=== PATIENT | female | born 1995 | race African-American/Black ===

== ENCOUNTER 2020-05-25 15:30 | Emergency (ER) | payer BC, SELFPAY ==
[2020-05-25 15:36] VITALS: BP 122/72; PULSE 81; RESP 16; TEMP 36.5; O2SAT 100
--- NOTE | 2020-05-25 15:57 | ED.FEMALEGU ---
HPI - Female Genitourinary General Chief complaint: TRANSACTION MANAGER Stated complaint: other Time Seen by Provider: 05/25/20 15:49 Source: patient and RN notes reviewed Mode of arrival: ambulatory Limitations: no limitations History of Present Illness HPI Narrative: Patient presents today complaining of a possibly retained tampon. Her last menstrual period was around 1 month ago. She presents today due to a vaginal odor. Denies abdominal or pelvic pain, vaginal discharge or bleeding, but complains of an odor. Denies concerns for sexually transmitted infections. Denies urinary complaints. Related Data Allergies Allergy/AdvReac Type Severity Reaction Status Date / Time No Known Allergies Allergy Verified 05/25/20 15:41 Review of Systems Review of Systems: Narrative: CONSTITUTIONAL: Denies body aches, fever, chills, or sweats. EYES: Denies visual changes, redness, or discharge. ENT: Denies rhinorrhea, congestion, sore throat, or otalgia. CARDIOVASCULAR: Denies chest pain, palpitations, or edema. RESPIRATORY: Denies cough or dyspnea. GASTROINTESTINAL: Denies abdominal pain, nausea, vomiting, or diarrhea. GENITOURINARY: Denies vaginal discharge, dysuria or hematuria.+ Vaginal odor SKIN: Denies rash, itching, or wounds. MUSCULOSKELETAL: Denies back pain, joint pain, or myalgia. NEUROLOGIC: Denies headache, numbness, tingling, or weakness. PSYCH: Denies depression or anxiety. PMFSH Comments At time of signature, I have reviewed and agree with nursing past medical, surgical, social and family history unless otherwise noted. Please see nursing chart for further information. There is no relevant family history pertinent to the presenting complaint Exam Narrative: Exam Narrative: GENERAL: Well-appearing, well-nourished, and in no acute distress. HEAD: Normocephalic, atraumatic. EYES: EOMI. No redness or drainage. ENT: Mucous membranes pink and moist. NECK: Normal AROM. CHEST: No respiratory distress. ABDOMEN: Soft, nontender, nondistended, normal active bowel sounds. : No tampon noted in vagina. -CMT. Cervix is mildly friable. Copious thick, chunky, yellow vaginal discharge. No adnexal tenderness. EXTREMITIES: Normal range of motion. No edema. SKIN: Warm, dry, no rash. Capillary refill normal. Normal skin turgor. NEURO: No focal deficits. Alert and oriented x3. Gait steady. PSYCH: Normal affect. No signs of depression or anxiety. Course Course Emergency Course: During exam, after noting patient's copious vaginal discharge, I asked her again if she was concerned about sexually transmitted infections and if she would like to be tested. Patient responded that she would like to be tested for what was available today. We will send off urine sample for gonorrhea, chlamydia, and trichomonas as facility today does not have swabs available for vaginal collection. Vital Signs Vital signs: Vital Signs Temperature 97.7 F 05/25/20 15:36 Pulse Rate 81 05/25/20 15:36 Respiratory Rate 16 05/25/20 15:36 Blood Pressure 122/72 05/25/20 15:36 Pulse Oximetry 100 05/25/20 15:36 Temperature 97.7 F 05/25/20 15:36 Pulse Rate 81 05/25/20 15:36 Respiratory Rate 16 05/25/20 15:36 Blood Pressure 122/72 05/25/20 15:36 Pulse Oximetry 100 05/25/20 15:36 Reviewed. Pt has been instructed to follow up with her PCP regarding her elevated blood pressure today. MDM - Female Genitourinary Differential Diagnosis Differential diagnosis: Likely bacterial vaginosis, trichomoniasis, cervicitis, vaginitis and other (Gonorrhea, chlamydia, retained tampon) Critical Care Time Critical Care Time Critical Care Time: No Discharge Plan Discharge Clinical Impression: Vaginal discharge Patient Disposition: Home, Self-Care Condition: Stable Instructions: Antibiotic Form Additional Instructions: No retained tampon was found today. Urine was collected today to send out for gonorrhea, chlamydia, and trichomonas. You
[2020-05-25] MEDS: AZITHROMYCIN 250 MG TABLET 1000 MG PO (16:30)
[2020-05-25] MEDS: cefTRIAXone 250 MG VIAL IM (16:31)
--- NOTE | 2020-05-25 16:35 | PC.NURSE ---
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 No retained tampon noted. Patient tolerated well.
== END 2020-05-25 16:57 | disposition home or self-care (01) ==
PROVIDERS: Emergency Provider Nurse Practitioner
DX: N89.8 Other specified noninflammatory disorders of vagina (principal)
CPT/HCPCS: 87491; 87591; 87661; 96372; 99214; A9270; G0463; J0696